=== PATIENT | male | born 1945 | race Caucasian/White ===

== ENCOUNTER 2022-07-14 08:59 | Inpatient (IN) ==
[2022-07-14 10:06] LABS: Basophils % 0.3 %; Eosinophils % 0.1 %; Hematocrit 37.6 % (37.5-50.1); Hemoglobin 12.6 g/dL (12.9-16.9); Immature Granulocytes % 0.8 % (0-4); Lymphocytes # 1.1 K/mcL (0.6-4.6); Lymphocytes % 10.9 %; Mean Corpuscular HGB Conc 33.5 g/dL (31.6-35.5); Mean Corpuscular Hemoglobin 29.9 pg (28.0-33.3); Mean Corpuscular Volume 89.3 fL (83.0-100.0); Mean Platelet Volume 9.3 fL (9.4-12.4); Monocytes # 1.4 K/mcL (0.0-1.3); Monocytes % 13.5 %; Neutrophils # 7.5 K/mcL (1.6-8.9); Platelet Count 235 K/mcL (140-400); Red Blood Count 4.21 M/mcL (4.19-5.50); Red Cell Distribution Width 14.5 % (11.5-14.5); Segmented Neutrophils % 74.4 %; White Blood Count 10.1 K/mcL (4.3-11.1)
[2022-07-14 10:22] LABS: Calcium 9.4 mg/dL (8.6-10.3); Potassium 3.6 mEq/L (3.5-5.1)
[2022-07-14 10:27] LABS: Bacteria,Urine Few per hpf (None-Few); Bilirubin,Urine Negative (Negative); Blood,Urine Small (Negative); Clarity,Urine Turbid (Clear); Color,Urine Yellow (Yellow); Glucose,Urine (UA) Normal (Normal); Hyaline Casts,Urine Many per lpf (None Seen); Ketones,Urine Trace mg/dL (Negative); Leukocyte Esterase,Urine Negative (Negative); Mucus,Urine Moderate per lpf (None-Few); Nitrite,Urine Negative (Negative); PH,Urine 5.5 pH Units (5.0-8.0); Protein,Urine 50 mg/dL (Neg-Trace); Specific Gravity,Urine 1.021 (1.010-1.025); Squamous Epithelial Cell,Urine Few per hpf (None-Few); Urobilinogen,Urine Normal (Normal); WBC,Urine 0-3 per hpf (0-3)
[2022-07-14] MEDS ORDERED: Iopamidol - 370 500 ML MLS IVP ONE (11:56)
[2022-07-14] MEDS ORDERED: Morphine Sulfate 2 MG/ML SYRINGE IVP ONE ×2 (11:57→16:12)
[2022-07-14 12:49] LABS: Alanine Aminotransferase 18 Units/L (7-52); Albumin 4.1 g/dL (3.5-5.7); Albumin/Globulin Ratio 1.4 (1.1-2.2); Alkaline Phosphatase 211 Units/L (34-104); Aspartate Amino Transferase 17 Units/L (13-39); Bilirubin,Direct 0.2 mg/dL (0.0-0.2); Bilirubin,Indirect 0.4 mg/dL (0.0-1.0); Bilirubin,Total 0.6 mg/dL (0.3-1.0); Glucose 150 mg/dL (70-105); Lipase 14 Units/L (11-82); Total Protein 7.1 g/dL (6.4-8.9); Troponin I < 0.03 ng/mL (< 0.04)
[2022-07-14 13:37] LABS: Influenza A PCR Negative (Negative); Influenza B PCR Negative (Negative); Resp. Syncytial Virus PCR Negative (Negative)
[2022-07-14 13:52] LABS: SARS-CoV-2 by PCR (In House) Negative (Negative)
[2022-07-14] MEDS ORDERED: Gadolinium Contrast Agent (WT Based) IV PRN ×2 (16:21→16:30)
[2022-07-14] MEDS ORDERED: GADOBUTROL 30 MMOL/30 ML VIAL IVP ONE ×2 (16:55→17:55)
[2022-07-14] MEDS ORDERED: *HR* Labetalol 20 MG/4 ML SYRINGE IVP ONE (19:42)
[2022-07-14] MEDS ORDERED: Ondansetron ODT 4 MG TAB.RAPDIS SL PRN (19:48)
[2022-07-14] MEDS ORDERED: MOM Conc 10 ML UD.LIQ PO PRN (19:48)
[2022-07-14] MEDS ORDERED: Naloxone 0.4 MG/ML INJ IVP PRN (19:48)
[2022-07-14] MEDS ORDERED: Dextrose Gel 15 GM/37.5 ML TUBE PO PRN ×2 (20:44)
[2022-07-14] MEDS ORDERED: *HR* Dextrose 50 % in Water (Syg) 50 ML SYRINGE IVP PRN (20:44)
[2022-07-14] MEDS ORDERED: D5% in Water 1,000 ML IVC PRN (20:44)
[2022-07-14] MEDS ORDERED: *HR* HYDROcodone/Acet 5/325 mg TABLET PO PRN (21:33)
[2022-07-14] MEDS: *HR* Labetalol 20 MG/4 ML SYRINGE IVP SCH (23:10)
[2022-07-14] MEDS: Pantoprazole 40 MG VIAL IVP SCH (23:10)
[2022-07-15] MEDS: *HR* Labetalol 20 MG/4 ML SYRINGE IVP SCH ×7 (02:14→21:51)
[2022-07-15] MEDS: Insulin LISPRO 300 UNITS/3 ML VIAL SUBQ SCH ×4 (02:16→21:06)
[2022-07-15 05:20] LABS: Hemoglobin 11.4 g/dL (12.9-16.9); Mean Corpuscular HGB Conc 32.6 g/dL (31.6-35.5); Mean Corpuscular Hemoglobin 29.5 pg (28.0-33.3); Mean Corpuscular Volume 90.4 fL (83.0-100.0); Mean Platelet Volume 9.4 fL (9.4-12.4); Platelet Count 208 K/mcL (140-400); Red Blood Count 3.87 M/mcL (4.19-5.50); Red Cell Distribution Width 14.4 % (11.5-14.5); White Blood Count 8.4 K/mcL (4.3-11.1)
[2022-07-15 05:31] LABS: Calcium 8.4 mg/dL (8.6-10.3); Potassium 3.4 mEq/L (3.5-5.1)
[2022-07-15] MEDS: Pantoprazole 40 MG VIAL IVP SCH (10:13)
[2022-07-15] MEDS ORDERED: *HR* FentaNYL (PF) 100 MCG/2 ML VIAL IVP ONE (10:14)
[2022-07-15] MEDS: Sennosides 8.6 MG TABLET PO SCH ×2 (20:25→21:05)
[2022-07-15] MEDS: Pregabalin 75 MG CAPSULE PO SCH (20:25)
[2022-07-15] MEDS: lisinopriL 20 MG TABLET PO SCH (21:11)
[2022-07-15] MEDS: carvediloL 25 MG TABLET PO SCH (21:12)
[2022-07-15] MEDS: NIFEdipine XL (24 HR) 30 MG TAB.ER.24 PO SCH (21:13)
[2022-07-16] MEDS: *HR* Labetalol 20 MG/4 ML SYRINGE IVP SCH ×6 (02:37→21:43)
[2022-07-16] MEDS: Insulin LISPRO 300 UNITS/3 ML VIAL SUBQ SCH ×4 (02:37→17:46)
[2022-07-16] MEDS: Acetaminophen 325 MG TABLET PO PRN (03:48)
[2022-07-16 05:55] LABS: Hematocrit 33.3 % (37.5-50.1); Hemoglobin 10.8 g/dL (12.9-16.9); Mean Corpuscular HGB Conc 32.4 g/dL (31.6-35.5); Mean Corpuscular Hemoglobin 29.6 pg (28.0-33.3); Mean Corpuscular Volume 91.2 fL (83.0-100.0); Mean Platelet Volume 9.5 fL (9.4-12.4); Platelet Count 174 K/mcL (140-400); Red Blood Count 3.65 M/mcL (4.19-5.50); Red Cell Distribution Width 14.5 % (11.5-14.5); White Blood Count 9.1 K/mcL (4.3-11.1)
[2022-07-16 07:15] LABS: Calcium 8.4 mg/dL (8.6-10.3); Potassium 3.6 mEq/L (3.5-5.1)
[2022-07-16] MEDS: Sennosides 8.6 MG TABLET PO SCH ×2 (08:47→19:35)
[2022-07-16] MEDS: Aspirin Enteric Coated 81 MG Tablet PO SCH (08:47)
[2022-07-16] MEDS: Pantoprazole 40 MG VIAL IVP SCH (08:48)
[2022-07-16] MEDS: Pregabalin 75 MG CAPSULE PO SCH ×2 (08:48→19:35)
[2022-07-16] MEDS: Cholecalciferol (D-3) 1,000 UNIT (25MCG) TABLET PO SCH (08:48)
[2022-07-16] MEDS: Cyanocobalamin (B-12) 1,000 MCG TABLET PO SCH (08:48)
[2022-07-16] MEDS: Furosemide 40 MG TABLET PO SCH (08:48)
[2022-07-16] MEDS: lisinopriL 20 MG TABLET PO SCH ×2 (08:49→19:31)
[2022-07-16] MEDS: NIFEdipine XL (24 HR) 30 MG TAB.ER.24 PO SCH (08:49)
[2022-07-16] MEDS: carvediloL 25 MG TABLET PO SCH ×2 (08:49→16:26)
[2022-07-16] MEDS ORDERED: Iopamidol - 370 500 ML MLS IVP ONE (09:24)
[2022-07-16] MEDS: Bicalutamide 50 MG TABLET PO SCH (16:26)
[2022-07-17 03:52] LABS: Hematocrit 32.1 % (37.5-50.1); Hemoglobin 10.2 g/dL (12.9-16.9); Mean Corpuscular HGB Conc 31.8 g/dL (31.6-35.5); Mean Corpuscular Hemoglobin 29.1 pg (28.0-33.3); Mean Corpuscular Volume 91.7 fL (83.0-100.0); Mean Platelet Volume 9.5 fL (9.4-12.4); Platelet Count 166 K/mcL (140-400); Red Cell Distribution Width 14.4 % (11.5-14.5); White Blood Count 8.5 K/mcL (4.3-11.1)
[2022-07-17 04:04] LABS: Calcium 7.9 mg/dL (8.6-10.3); Potassium 3.4 mEq/L (3.5-5.1)
[2022-07-17] MEDS: *HR* Labetalol 20 MG/4 ML SYRINGE IVP SCH ×2 (05:02→05:04)
[2022-07-17] MEDS: Furosemide 40 MG TABLET PO SCH ×2 (09:26→09:48)
[2022-07-17] MEDS: Sennosides 8.6 MG TABLET PO SCH ×2 (09:26→21:00)
[2022-07-17] MEDS: NIFEdipine XL (24 HR) 30 MG TAB.ER.24 PO SCH ×2 (09:26→09:48)
[2022-07-17] MEDS: Cholecalciferol (D-3) 1,000 UNIT (25MCG) TABLET PO SCH (09:26)
[2022-07-17] MEDS: carvediloL 25 MG TABLET PO SCH ×3 (09:27→16:33)
[2022-07-17] MEDS: Cyanocobalamin (B-12) 1,000 MCG TABLET PO SCH (09:27)
[2022-07-17] MEDS: Pregabalin 75 MG CAPSULE PO SCH ×2 (09:27→20:59)
[2022-07-17] MEDS: Bicalutamide 50 MG TABLET PO SCH (09:27)
[2022-07-17] MEDS: Aspirin Enteric Coated 81 MG Tablet PO SCH (09:27)
[2022-07-17] MEDS: Insulin LISPRO 300 UNITS/3 ML VIAL SUBQ SCH ×5 (09:28→21:00)
[2022-07-17] MEDS: Pantoprazole 40 MG VIAL IVP SCH (09:28)
[2022-07-17] MEDS: lisinopriL 20 MG TABLET PO SCH (21:00)
[2022-07-18 08:20] LABS: Basophils % 0.2 %; Eosinophils # 0.1 K/mcL (0.0-0.6); Hematocrit 34.4 % (37.5-50.1); Hemoglobin 11.1 g/dL (12.9-16.9); Immature Granulocytes % 0.9 % (0-4); Lymphocytes # 1.4 K/mcL (0.6-4.6); Lymphocytes % 13.1 %; Mean Corpuscular HGB Conc 32.3 g/dL (31.6-35.5); Mean Corpuscular Hemoglobin 29.6 pg (28.0-33.3); Mean Corpuscular Volume 91.7 fL (83.0-100.0); Mean Platelet Volume 9.6 fL (9.4-12.4); Monocytes # 1.4 K/mcL (0.0-1.3); Monocytes % 13.4 %; Neutrophils # 7.5 K/mcL (1.6-8.9); Platelet Count 161 K/mcL (140-400); Red Blood Count 3.75 M/mcL (4.19-5.50); Red Cell Distribution Width 14.5 % (11.5-14.5); Segmented Neutrophils % 71.4 %; White Blood Count 10.4 K/mcL (4.3-11.1)
[2022-07-18 08:47] LABS: Calcium 8.3 mg/dL (8.6-10.3); Potassium 4.3 mEq/L (3.5-5.1)
[2022-07-18] MEDS: Bicalutamide 50 MG TABLET PO SCH (09:13)
[2022-07-18] MEDS: Cyanocobalamin (B-12) 1,000 MCG TABLET PO SCH (09:13)
[2022-07-18] MEDS: Furosemide 40 MG TABLET PO SCH (09:13)
[2022-07-18] MEDS: Aspirin Enteric Coated 81 MG Tablet PO SCH (09:13)
[2022-07-18] MEDS: Pantoprazole 40 MG VIAL IVP SCH (09:13)
[2022-07-18] MEDS: Pregabalin 75 MG CAPSULE PO SCH ×2 (09:13→21:19)
[2022-07-18] MEDS: Insulin LISPRO 300 UNITS/3 ML VIAL SUBQ SCH ×4 (09:15→21:19)
[2022-07-18] MEDS: Cholecalciferol (D-3) 1,000 UNIT (25MCG) TABLET PO SCH (09:15)
[2022-07-18] MEDS: carvediloL 6.25 MG TABLET PO SCH ×2 (09:15→16:51)
[2022-07-18] MEDS: Sennosides 8.6 MG TABLET PO SCH ×2 (09:18→21:19)
[2022-07-18] MEDS: Acetaminophen 325 MG TABLET PO PRN (13:45)
[2022-07-18] MEDS: lisinopriL 20 MG TABLET PO SCH (21:19)
[2022-07-19] MEDS: carvediloL 6.25 MG TABLET PO SCH ×2 (08:02→17:47)
[2022-07-19] MEDS: Pregabalin 75 MG CAPSULE PO SCH ×2 (08:02→20:06)
[2022-07-19] MEDS: Cholecalciferol (D-3) 1,000 UNIT (25MCG) TABLET PO SCH (08:03)
[2022-07-19] MEDS: Pantoprazole 40 MG VIAL IVP SCH (08:03)
[2022-07-19] MEDS: Furosemide 40 MG TABLET PO SCH (08:03)
[2022-07-19] MEDS: Insulin LISPRO 300 UNITS/3 ML VIAL SUBQ SCH ×5 (08:03→22:03)
[2022-07-19] MEDS: Cyanocobalamin (B-12) 1,000 MCG TABLET PO SCH (08:03)
[2022-07-19] MEDS: Sennosides 8.6 MG TABLET PO SCH ×2 (08:03→20:09)
[2022-07-19] MEDS: Bicalutamide 50 MG TABLET PO SCH (08:03)
[2022-07-19] MEDS: Aspirin Enteric Coated 81 MG Tablet PO SCH (08:03)
[2022-07-19 11:36] LABS: Kappa Qnt Free Light Chains 33.27 mg/L (3.30-19.40); Lambda Qnt Free Light Chains 19.62 mg/L (5.71-26.30)
[2022-07-19] MEDS: lisinopriL 20 MG TABLET PO SCH (20:09)
[2022-07-19] MEDS ORDERED: Insulin DETEMIR 100 UNIT/ML X5UNITS SUBQ SCH (21:00)
[2022-07-19] MEDS: carvediloL 25 MG TABLET PO SCH (23:11)
[2022-07-20] MEDS: Sennosides 8.6 MG TABLET PO SCH ×2 (07:44→20:24)
[2022-07-20] MEDS: Bicalutamide 50 MG TABLET PO SCH (07:44)
[2022-07-20] MEDS: Cyanocobalamin (B-12) 1,000 MCG TABLET PO SCH (07:44)
[2022-07-20] MEDS: Cholecalciferol (D-3) 1,000 UNIT (25MCG) TABLET PO SCH (07:44)
[2022-07-20] MEDS: Aspirin Enteric Coated 81 MG Tablet PO SCH (07:44)
[2022-07-20] MEDS: carvediloL 6.25 MG TABLET PO SCH ×2 (07:44→16:54)
[2022-07-20] MEDS: Furosemide 40 MG TABLET PO SCH (07:44)
[2022-07-20] MEDS: Pregabalin 75 MG CAPSULE PO SCH ×2 (07:44→20:24)
[2022-07-20] MEDS: Insulin DETEMIR 100 UNIT/ML X5UNITS SUBQ SCH ×2 (09:20→20:24)
[2022-07-20] MEDS: Insulin LISPRO 300 UNITS/3 ML VIAL SUBQ SCH ×6 (10:35→20:25)
[2022-07-20] MEDS: lisinopriL 20 MG TABLET PO SCH (20:24)
[2022-07-20 22:58] LABS: Alpha 2 Globulin (PEP) 1.05 g/dL (0.48-1.05); Beta Globulin (PEP) 0.77 g/dL (0.48-1.10)
[2022-07-21] MEDS: Aspirin Enteric Coated 81 MG Tablet PO SCH (07:55)
[2022-07-21] MEDS: Furosemide 40 MG TABLET PO SCH (07:55)
[2022-07-21] MEDS: Sennosides 8.6 MG TABLET PO SCH ×2 (07:55→20:51)
[2022-07-21] MEDS: Pregabalin 75 MG CAPSULE PO SCH ×2 (07:55→20:50)
[2022-07-21] MEDS: Bicalutamide 50 MG TABLET PO SCH (07:55)
[2022-07-21] MEDS: carvediloL 6.25 MG TABLET PO SCH ×2 (07:55→17:30)
[2022-07-21] MEDS: Cyanocobalamin (B-12) 1,000 MCG TABLET PO SCH (07:55)
[2022-07-21] MEDS: Cholecalciferol (D-3) 1,000 UNIT (25MCG) TABLET PO SCH (07:55)
[2022-07-21] MEDS: Insulin LISPRO 300 UNITS/3 ML VIAL SUBQ SCH ×7 (07:59→20:51)
[2022-07-21] MEDS: Insulin DETEMIR 100 UNIT/ML X5UNITS SUBQ SCH ×2 (08:03→20:51)
[2022-07-21 14:53] LABS: IFE Reflexed NOT DONE
[2022-07-21] MEDS: lisinopriL 20 MG TABLET PO SCH (20:51)
[2022-07-22] MEDS: Acetaminophen 325 MG TABLET PO PRN (05:48)
[2022-07-22] MEDS: carvediloL 6.25 MG TABLET PO SCH ×2 (09:24→17:33)
[2022-07-22] MEDS: Cyanocobalamin (B-12) 1,000 MCG TABLET PO SCH (09:25)
[2022-07-22] MEDS: Bicalutamide 50 MG TABLET PO SCH (09:25)
[2022-07-22] MEDS: Furosemide 40 MG TABLET PO SCH (09:25)
[2022-07-22] MEDS: Sennosides 8.6 MG TABLET PO SCH ×2 (09:26→21:44)
[2022-07-22] MEDS: Aspirin Enteric Coated 81 MG Tablet PO SCH (09:26)
[2022-07-22] MEDS: Pregabalin 75 MG CAPSULE PO SCH ×2 (09:26→21:43)
[2022-07-22] MEDS: Cholecalciferol (D-3) 1,000 UNIT (25MCG) TABLET PO SCH (09:26)
[2022-07-22] MEDS: Insulin LISPRO 300 UNITS/3 ML VIAL SUBQ SCH ×7 (09:28→21:46)
[2022-07-22] MEDS: Insulin DETEMIR 100 UNIT/ML X5UNITS SUBQ SCH ×2 (09:28→21:46)
[2022-07-22] MEDS: lisinopriL 20 MG TABLET PO SCH (21:44)
[2022-07-23 03:00] VITALS: BP 106/55; PULSE 80; TEMP 97.5; O2SAT 92
[2022-07-23] MEDS: Insulin LISPRO 300 UNITS/3 ML VIAL SUBQ SCH (09:26)
[2022-07-23] MEDS: Aspirin Enteric Coated 81 MG Tablet PO SCH (09:27)
[2022-07-23] MEDS: Furosemide 40 MG TABLET PO SCH (09:27)
[2022-07-23] MEDS: Sennosides 8.6 MG TABLET PO SCH (09:27)
[2022-07-23] MEDS: carvediloL 6.25 MG TABLET PO SCH (09:27)
[2022-07-23] MEDS: Cyanocobalamin (B-12) 1,000 MCG TABLET PO SCH (09:27)
[2022-07-23] MEDS: Pregabalin 75 MG CAPSULE PO SCH (09:27)
[2022-07-23] MEDS: Cholecalciferol (D-3) 1,000 UNIT (25MCG) TABLET PO SCH (09:28)
== END 2022-07-23 10:00 | DRG 316 ==
LOC: EMEROOARM 08:59 → 2NNU 07-15 17:13 → SUATTDRO 07-15 17:13 → 2NNU 07-15 18:03 → 3NENU 07-17 11:38
PROVIDERS: ADMIT Internal Medicine; ATTEND Internal Medicine